=== PATIENT | female | born 1990 | race African-American/Black ===

== ENCOUNTER 2016-04-04 10:53 | Emergency (ER) | payer MEDICAID ==
[~2016-04-04] VITALS: Ht 162.6 cm; Wt 70.0 kg
[~2016-04-04 10:53] MED LIST: ZOFR4TAB3 SL
[2016-04-04 10:55] VITALS: BP 118/66; PULSE 66; RESP 16; TEMP 97.4; O2SAT 99
--- NOTE | 2016-04-04 11:10 | PD ---
HPI Chief Complaint: Flank/Kidney Pain Time Seen by Provider: 11:05 Travel History International Travel<30 days: No Contact w/Intl Traveler<30days: No Traveled to known affect area: No History of Present Illness HPI The patient is a 26-year-old Bhavani female who presents emergency department for 1 day history of dysuria, frequency, and urgency. The patient states her symptoms started yesterday with left sided, lower back pain. Patient now complains of suprapubic discomfort with genitourinary symptoms. The patient denies any vaginal discharge, vaginal bleeding, or history of STI' s. The patient denies any previous abdominal surgeries. 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 She is sexually active. She denies any nausea, vomiting, diarrhea, or change in appetite. Symptoms are mild to moderate with no known alleviating or exacerbating factors. PFSH Past Medical History Blood Disorders: No Depression: Yes Diminished Hearing: No Psychiatric: Yes Immunizations Current: No ?: Not : 5 Para: 2 Miscarriage: 2 : 1 Past Surgical History Section: No Other Surgery: No Social History Alcohol Use: Yes (occ) Tobacco Use: Yes (1/2 ppd black and mild) Substance Use: Yes (marijuana occ) Allergies-Medications (Allergen,Severity, Reaction): Coded Allergies: No Known Allergies (Verified , 04/04/16) Reported Meds & Prescriptions Reported Meds & Active Scripts Active No Active Prescriptions or Reported Medications Review of Systems Except as stated in HPI: all other systems reviewed are Neg General / Constitutional: No: Fever Gastrointestinal: No: Nausea, Vomiting Genitourinary: Positive: Urgency, Frequency, Dysuria, Pelvic Pain (suprapubic disc), No: Hematuria, Discharge, Vaginal Bleeding Musculoskeletal: Positive: Pain (left-sided low back pain) Skin: No Rash Physical Exam Narrative GENERAL: Awake, alert, pleasant 26-year-old female who appears her stated age and is in no acute respiratory distress. SKIN: Warm and dry. HEAD: Atraumatic. Normocephalic. EYES: No injection or drainage. NECK: Trachea midline. No JVD. GASTROINTESTINAL: Abdomen soft, mild suprapubic discomfort. No rebound tenderness, guarding, or rigidity. Back: Mild tenderness of the left CVA. MUSCULOSKELETAL: No obvious deformities. No clubbing. No cyanosis. No edema. NEUROLOGICAL: Awake and alert. No obvious cranial nerve deficits. Motor grossly within normal limits. Normal speech. PSYCHIATRIC: Appropriate mood and affect; insight and judgment normal. Data Data Last Documented VS Vital Signs Date Time Temp Pulse Resp B/P Pulse Ox O2 Delivery O2 Flow Rate FiO2 04/04/16 10:55 97.4 66 16 118/66 99 Room Air Orders Urinalysis - C+S If Indicated (04/04/16 11:07) Ed Urine Pregnancytest Poc (04/04/16 11:07) Urine Culture (04/04/16 11:10) Labs Laboratory Tests Test 04/04/16 11:10 Urine Color YELLOW Urine Turbidity HAZY Urine pH 6.5 Urine Specific [place] 1.019 Urine Protein 30 mg/dL Urine Glucose (UA) NEG mg/dL Urine Ketones NEG mg/dL Urine Occult Blood MOD Urine Nitrite NEG Urine Bilirubin NEG Urine Urobilinogen LESS THAN 2.0 MG/DL Urine Leukocyte Esterase LARGE Urine RBC 49 /hpf Urine WBC /hpf Urine WBC Clumps MOD Urine Squamous Epithelial 1 /hpf Cells Urine Renal Epithelial Cells <1 /hpf Urine Bacteria MOD /hpf Urine Mucus FEW /lpf Microscopic Urinalysis Comment CULTURE INDICATED MDM Medical Decision Making Medical Screen Exam Complete: Yes Emergency Medical Condition: Yes Medical Record Reviewed: Yes Interpretation(s) Laboratory Tests Test 04/04/16 11:10 Urine Color YELLOW Urine Turbidity HAZY Urine pH 6.5 Urine Specific [place] 1.019 Urine Protein 30 mg/dL Urine Glucose (UA) NEG mg/dL Urine Ketones NEG mg/dL Urine Occult Blood MOD Urine Nitrite NEG Urine Bilirubin NEG Urine Urobilinogen LESS THAN 2.0 MG/DL Urine Leukocyte Esterase LARGE Urine RBC 49 /hpf Urine WBC /hpf Urine WBC Clumps MOD Urine Squamous Epithelial 1 /hpf Cells Urine Renal Epithelial Cells <1 /hpf Urine Bacteria MOD /hpf Urine Mucus FEW /lpf Microscopic Urinalysis Comment CULTURE INDICATED Differential Diagnosis Differential diagnosis includes pyelonephritis, UTI, cystitis, , ectopic , cervicitis, PID, vaginitis. Narrative Course UA was sent to lab and bedside UA test was obtained. The patient's UA reveals innumerable wbc's and 49 RBCs with moderate bacteria. UA test was negative. Patient has pyelonephritis, will be treated with antibiotics. The patient was administered Bactrim in the emergency department and will be discharged home on Bactrim twice a day for 7 days as well as Pyridium. The patient is advised to return if symptoms worsen or progress. Diagnosis Primary Impression: Pyelonephritis Patient Instructions: General Instructions Additional Instructions: Medications as directed. Work excuse for one day. Follow-up with her primary physician. Return if symptoms worsen or progress. Med/Other Pt SpecificInfo: Prescription(s) given Scripts Phenazopyridine (Pyridium)200 Mg [id number] Mg PO Q8H PRN (DYSURIA) 2 Days Ref 0 Prov:Emmett Mckee MD 04/04/16 Sulfamethoxazole-Trimethoprim (Bactrim DS)800-160 Mg Tab1 Tab PO BID #14 TAB Ref 0 Prov:Emmett Mckee MD 04/04/16 Disposition: 01 DISCHARGE HOME Condition: Stable Emmett Mckee MD Apr 04, 2016 11:10
[2016-04-04 11:40] LABS: BACTERIA, URINE MOD /hpf; BLOOD, URINE MOD (NEG); COMMENT (UR) CULTURE INDICATED; CULTURE IF INDICATED CULTURE INDICATED; GLUCOSE,URINE NEG (NEG); KETONE, URINE NEG (NEG); MUCUS URINE FEW /lpf (OCC); NITRITE,URINE NEG (NEG); PH, URINE 6.5 (5.0-8.5); RENAL EPITHELIAL CELLS <1 /hpf; SQUAMOUS EPITHELIAL CELL URINE 1 /hpf (0-5); URINE COLOR YELLOW (YELLW/STRAW)
[2016-04-04] MEDS ORDERED: BACT800T5 PO (11:48)
[2016-04-04] MEDS ORDERED: PYRI200T4 PO (11:48)
[2016-04-04] MEDS ORDERED: SULFAMETHOXAZOLE-TRIMETHOPRIM DS 800-160 MG TAB PO ONE (12:00)
== END 2016-04-04 12:05 | disposition home or self-care (01) ==
LOC: NETRI 10:53
DX: N12 Tubulo-interstitial nephritis, not specified as acute or chronic (principal); F17.210 Nicotine dependence, cigarettes, uncomplicated; F12.90 Cannabis use, unspecified, uncomplicated; B96.20 Unspecified Escherichia coli [E. coli] as the cause of diseases classified elsewhere
CPT/HCPCS: 81001; 84703; 87077; 87086; 87186; 99283

== ENCOUNTER 2016-04-23 11:12 | Emergency (ER) | payer MEDICAID ==
[~2016-04-23 11:12] MED LIST changes: +BACT800T5 PO; +PYRI200T4 PO; -ZOFR4TAB3 SL
[2016-04-23 11:14] VITALS: BP 103/59; PULSE 96; RESP 14; TEMP 98.5; O2SAT 100
[2016-04-23] MEDS ORDERED: IBUP800T23 PO (12:16)
[2016-04-23] MEDS ORDERED: AZIT250T3 PO (12:16)
--- NOTE | 2016-04-23 12:16 | PD ---
HPI Chief Complaint: Cold / Flu Symptoms Time Seen by Provider: 11:50 Travel History International Travel<30 days: No Contact w/Intl Traveler<30days: No Traveled to known affect area: No History of Present Illness HPI Patient is a 26-year-old female who presented to the emergency department for evaluation of cough, chest congestion, nasal congestion, sore throat him a body aches. Patient states her symptoms have been ongoing for approximately 5 days. She reports taking Aleve last night with no relief of her symptoms. She denies any nausea, vomiting, abdominal pain, chest pain or shortness of breath. Patient does endorse tobacco use. PFSH Past Medical History Blood Disorders: No Depression: Yes Diminished Hearing: No Psychiatric: Yes Immunizations Current: No ?: Not : 5 Para: 2 Miscarriage: 2 : 1 Past Surgical History Section: No Gynecologic Surgery: Yes Other Surgery: No Social History Alcohol Use: Yes (occ) Tobacco Use: Yes (1/2 ppd black and mild) Substance Use: Yes (marijuana occ) Allergies-Medications (Allergen,Severity, Reaction): Coded Allergies: No Known Allergies (Verified , 04/23/16) Reported Meds & Prescriptions Reported Meds & Active Scripts Active Pyridium (Phenazopyridine HCl) 200 Mg Tab 200 Mg PO Q8H PRN 2 Days Bactrim DS (Sulfamethoxazole-Trimethoprim) 800-160 Mg Tab 1 Tab PO BID Review of Systems Except as stated in HPI: all other systems reviewed are Neg General / Constitutional: Positive: Chills, No: Fever HENT: Positive: Sore Throat, Rhinitis, Congestion Cardiovascular: No: Chest Pain or Discomfort Respiratory: Positive: Cough, No: Shortness of Breath Gastrointestinal: No: Nausea, Vomiting, Diarrhea Musculoskeletal: Positive: Myalgias Physical Exam Narrative GENERAL: Well-nourished, well-developed patient. SKIN: Warm and dry. HEAD: Normocephalic. EYES: No scleral icterus. No injection or drainage. ENT: Mucosa pink and moist. No erythema or exudates. No uvular edema. No uvular , palatal, or tonsillar deviation. Airway patent. Nasal turbinates appear normal without nasal blood, purulent drainage or septal hematoma. Cobblestone appearance to posterior pharynx. NECK: Supple, trachea midline. No JVD or lymphadenopathy. CARDIOVASCULAR: Regular rate and rhythm without murmurs, gallops, or rubs. RESPIRATORY: Breath sounds equal bilaterally. No accessory muscle use. GASTROINTESTINAL: Abdomen soft, non-tender, nondistended. MUSCULOSKELETAL: No cyanosis, or edema. BACK: Nontender without obvious deformity. No CVA tenderness. Data Data Last Documented VS Vital Signs Date Time Temp Pulse Resp B/P Pulse Ox O2 Delivery O2 Flow Rate FiO2 04/23/16 11:14 98.5 96 14 103/59 100 Room Air MDM Medical Decision Making Medical Screen Exam Complete: Yes Emergency Medical Condition: Yes Interpretation(s) Vital Signs Date Time Temp Pulse Resp B/P Pulse Ox O2 Delivery O2 Flow Rate FiO2 04/23/16 11:14 98.5 96 14 103/59 100 Room Air Differential Diagnosis Viral URI versus bronchitis versus pneumonia versus pharyngitis versus other Narrative Course Patient is a 26-year-old female who presented emergency for evaluation of 5 days of cough, chest congestion, nasal congestion, sore throat and body aches. Patient has not taken any lrud-ltv-anffvlh medications to relieve her symptoms. Patient's physical examination appears most consistent with a viral syndrome however she reports feeling worse. Patient was encouraged to take ibuprofen as needed and as directed for body aches and fevers, she was encouraged to obtain cyxd-xen-ucvllkq Mucinex DM or Sudafed. She will be provided with a prescription for an antibiotic due to her history of tobacco use as well as the duration of her symptoms. Patient was encouraged follow-up with primary care provider return to emergency department for any new or worsening symptoms. Patient verbalized understanding of these instructions. Patient is stable for discharge. Diagnosis Primary Impression: Acute bronchitis Qualified Code: J20.9 - Acute bronchitis, unspecified organism Referrals: Primary Care Physician Patient Instructions: Acute Bronchitis (ED), General Instructions Departure Forms: Tests/Procedures, Work Release Enter return to work date: Apr 25, 2016 Additional Instructions: Follow-up with your doctor Take medications as directed Obtain jipf-emg-ttkovdy Sudafed or Mucinex DM and use as directed Take ibuprofen as needed and as directed for fevers or body aches Return to emergency department for any new or worsening symptoms Med/Other Pt SpecificInfo: Prescription(s) given Scripts Ibuprofen 800 Mg [id number] Mg PO Q6HR PRN (PAIN) 10 Days Ref 0 Prov:Susie Ross 04/23/16 Azithromycin 250 Mg [id number] Mg PO DIRECTED #6 TAB Ref 0 Take 2 tabs (500 mg) on day 1 then 1 tab daily x 4 days. Prov:Susie Ross 04/23/16 Disposition: 01 DISCHARGE HOME Condition: Stable Susie Ross Apr 23, 2016 12:16
== END 2016-04-23 12:29 | disposition home or self-care (01) ==
LOC: NEPB 11:12
DX: J20.9 Acute bronchitis, unspecified (principal); F17.200 Nicotine dependence, unspecified, uncomplicated
CPT/HCPCS: 99283

== ENCOUNTER 2016-05-14 00:31 | Emergency (ER) | payer MEDICAID ==
[~2016-05-14] VITALS: Ht 162.6 cm; Wt 71.0 kg
[~2016-05-14 00:31] MED LIST changes: +AZIT250T3 PO; +IBUP800T23 PO
[2016-05-14 00:33] VITALS: BP 116/65; PULSE 108; RESP 16; TEMP 98.3; O2SAT 100
[2016-05-14 03:24] VITALS: RESP 16
[2016-05-14] MEDS ORDERED: SODIUM CHLOR 0.9% 1000 ML INJ 1,000 ML IV ONE (03:30)
[2016-05-14] MEDS ORDERED: ONDANSETRON HCL 4 MG/2 ML VIAL IV ONE (03:30)
[2016-05-14 03:45] LABS: AUTOMATED NEUTROPHIL # 5.5 TH/MM3 (1.8-7.7); BASOPHIL % 0.1 % (0.0-2.0); BLOOD, URINE NEG (NEG); COMMENT (UR) CULT NOT INDICATED; CULTURE IF INDICATED CULT NOT INDICATED; EOSINOPHIL % 0.2 % (0.0-4.0); GLUCOSE,URINE NEG (NEG); HEMATOCRIT 35.2 % (35.0-46.0); HEMO FLAGS DIFF FINAL; KETONE, URINE NEG (NEG); LYMPH % 12.9 % (9.0-44.0); LYMPHOCYTE # 0.9 TH/MM3 (1.0-4.8); MEAN CELL VOLUME 78.6 FL (80.0-100.0); MEAN CORPUSCULAR HEMOGLOBIN 26.1 PG (27.0-34.0); MEAN CORPUSCULAR HGB CONC 33.2 % (32.0-36.0); MONO % 3.7 % (0.0-8.0); MUCUS URINE FEW /lpf (OCC); NEUT % 83.1 % (16.0-70.0); NITRITE,URINE NEG (NEG); PLATELET COUNT 301 TH/MM3 (150-450); RED BLOOD COUNT 4.48 MIL/MM3 (4.00-5.30); RED CELL DISTRIBUTION WIDTH 14.9 % (11.6-17.2); SQUAMOUS EPITHELIAL CELL URINE 6 /hpf (0-5); URINE COLOR YELLOW (YELLW/STRAW); WHITE BLOOD COUNT 6.6 TH/MM3 (4.0-11.0)
[2016-05-14 04:05] LABS: ALT (GPT) 19 U/L (10-53); ANION GAP 7 MEQ/L (5-15); AST (GOT) 19 U/L (15-37); BICARBONATE 25.4 MEQ/L (21.0-32.0); BLOOD UREA NITROGEN 12 MG/DL (7-18); CHLORIDE 106 MEQ/L (98-107); GLOMERULAR FILTRATION RATE 102 ML/MIN (>89); SODIUM (NA) 138 MEQ/L (136-145)
[2016-05-14 04:10] LABS: ALKALINE PHOSPHATASE 66 U/L (45-117); TOTAL BILIRUBIN ADULT 0.4 MG/DL (0.2-1.0)
--- NOTE | 2016-06-05 07:53 | PD ---
HPI Chief Complaint: GI Complaint Time Seen by Provider: 02:16 Travel History International Travel<30 days: No Contact w/Intl Traveler<30days: No Traveled to known affect area: No History of Present Illness HPI The patient is a 26 year old female who presents to the [facility] emergency department with a history of vomiting that she reports began yesterday. The patient reports that she has had 3 episodes of vomiting since onset. She denies having any diarrhea. She reports that she has not been able to keep food down. She has been tolerating sips of liquids. The patient denies any recent fevers, cough, congestion, neck pain, chest pain, shortness of breath , abdominal pain, diarrhea, urinary symptoms, or neurologic symptoms. LMP: April 17, 2016. [facility] Past Medical History Narrative Medical The patient's past medical history is significant for depression. Medical History: Denies Significant Hx Blood Disorders: No Depression: Yes Diminished Hearing: No Psychiatric: Yes Immunizations Current: No Tetanus Vaccination: < 5 Years Influenza Vaccination: No ?: Not LMP: 04/17/16 Menopausal: No : 5 Para: 2 Miscarriage: 2 : 1 Past Surgical History Narrative Surgical The patient's past surgical history is significant for a gynecologic surgery. Section: No Gynecologic Surgery: Yes Other Surgery: No Social History Alcohol Use: Yes (occ) Tobacco Use: Yes (1/2 ppd black and mild) Substance Use: Yes (marijuana occ) Allergies-Medications (Allergen,Severity, Reaction): Coded Allergies: No Known Allergies (Verified , 05/14/16) Reported Meds & Prescriptions Reported Meds & Active Scripts Active No Active Prescriptions or Reported Medications Review of Systems Except as stated in HPI: all other systems reviewed are Neg General / Constitutional: No: Fever Eyes: No: Visual changes HENT: No: Headaches Cardiovascular: No: Chest Pain or Discomfort Respiratory: No: Shortness of Breath Gastrointestinal: Positive: Nausea, Vomiting, No: Diarrhea, Abdominal Pain, Changes in Bowel Habits, Indigestion, Loss of Appetite Genitourinary: No: Dysuria Musculoskeletal: No: Pain Skin: No Rash Neurologic: No: Weakness Psychiatric: No: Depression Endocrine: No: Polydipsia Hematologic/Lymphatic: No: Easy Bruising Physical Exam Narrative The patient left AGAINST MEDICAL ADVICE prior to her physical exam being completed. Data Data Orders Complete Blood Count With Diff (05/14/16 03:22) Comprehensive Metabolic Panel (05/14/16 03:22) Lipase (05/14/16 03:22) Urinalysis - C+S If Indicated (05/14/16 03:22) Iv Access Insert/Monitor (05/14/16 03:22) Ecg Monitoring (05/14/16 03:22) Oximetry (05/14/16 03:22) Sodium Chlor 0.9% 1000 Ml Inj (Ns 1000 M (05/14/16 03:30) Ondansetron Inj (Zofran Inj) (05/14/16 03:30) MDM Medical Decision Making Medical Screen Exam Complete: Yes Emergency Medical Condition: Yes Medical Record Reviewed: Yes Differential Diagnosis Viral syndrome, versus gastroenteritis, versus electrolyte abnormality, versus dehydration, versus pancreatitis, versus Narrative Course During the course of the patients emergency department visit, the patients history, examination, and differential diagnosis were reviewed with the patient. The patient had IV access obtained and blood work sent for analysis. The patient was placed on a radiographer cardiac catheterization with oximetry and blood pressure monitoring. The patient elected to leave AGAINST MEDICAL ADVICE prior to the completion of her workup for administration of any IV fluids or nausea medicine. AMA: The risks of leaving against medical advice without further evaluation treatment were discussed with the patient. These risks include undiagnosed sepsis, versus appendicitis versus pancreatitis, versus electrolyte abnormality which could lead to cardiac arrhythmias or . The patient indicated understanding of these risks and appeared to have the capacity to make this decision. Diagnosis Primary Impression: Left against medical advice Additional Impression: Vomiting Patient Instructions: General Instructions Departure Forms: Tests/Procedures Scripts No Active Prescriptions or Reported Meds Disposition: 07 AGAINST MEDICAL ADVICE Condition: Stable Yesi Ray MD Jun 05, 2016 07:52
== END 2016-05-14 04:08 | disposition left against medical advice (07) ==
LOC: NEPC 00:31
DX: R11.10 Vomiting, unspecified (principal); F17.210 Nicotine dependence, cigarettes, uncomplicated
CPT/HCPCS: 80053; 81001; 83690; 85025; 96374; 99283; J2405; J7030

== ENCOUNTER 2016-07-14 02:22 | Emergency (ER) | payer MEDICAID, OTHER ==
[~2016-07-14] VITALS: Ht 162.6 cm; Wt 68.0 kg
[2016-07-14 02:23] VITALS: BP 139/92; PULSE 58; RESP 16; TEMP 97.5; O2SAT 98
[2016-07-14] MEDS ORDERED: PENICILLIN V POTASSIUM 500 MG TAB PO ONE (03:00)
[2016-07-14] MEDS ORDERED: ACETAMINOPHEN/HYDROcodone 325 MG/5 MG TAB PO ONE (03:00)
[2016-07-14] MEDS ORDERED: PENI500T PO (03:06)
[2016-07-14] MEDS ORDERED: HYDR-3533 PO (03:06)
--- NOTE | 2016-07-14 03:07 | PD ---
HPI Chief Complaint: Oral / Dental Pain or Problem Time Seen by Provider: 02:58 Travel History International Travel<30 days: No Contact w/Intl Traveler<30days: No Traveled to known affect area: No History of Present Illness HPI 26 yo F c/o L dentalgia with radiation to L ear and L jaw. Ibuprofen, Tylenol and BC powder was helpful. No fever. Onset gradual. Timing constant. Pt has follow up with dentist planned. PFSH Past Medical History Blood Disorders: No Depression: Yes Diminished Hearing: No Psychiatric: Yes Immunizations Current: No ?: Unknown LMP: 06-16-16 Menopausal: No : 5 Para: 2 Miscarriage: 2 : 1 Past Surgical History Surgical History: No Previous Surgery Section: No Gynecologic Surgery: Yes Other Surgery: No Social History Alcohol Use: Yes (occ) Tobacco Use: Yes (1/2 ppd black and mild) Substance Use: Yes (marijuana occ) Allergies-Medications (Allergen,Severity, Reaction): Coded Allergies: No Known Allergies (Verified , 05/14/16) Reported Meds & Prescriptions Reported Meds & Active Scripts Active No Active Prescriptions or Reported Medications Review of Systems General / Constitutional: No: Fever HENT: Positive: Dental Difficulties Physical Exam Narrative GENERAL: 26 yo F, WNWD ENT: L upper dentition good with one fractured wisdom tooth. L lower dentition poor with fractures and carries. TMs pink with clear visualization landmarks bilaterally. SKIN: Warm and dry. HEAD: Normocephalic. EYES: No scleral icterus. No injection or drainage. NECK: Supple, trachea midline. No JVD or lymphadenopathy. BACK: Nontender without obvious deformity. No CVA tenderness. Data Data Last Documented VS Vital Signs Date Time Temp Pulse Resp B/P Pulse Ox O2 Delivery O2 Flow Rate FiO2 07/14/16 02:23 97.5 58 16 139/92 98 Room Air VS reviewed Orders Penicillin V Potassium (Veetids) (07/14/16 03:00) Acetamin-Hydrocod 325-5 Mg ([place] 5-325 (07/14/16 03:00) MDM Medical Decision Making Medical Screen Exam Complete: Yes Emergency Medical Condition: Yes Differential Diagnosis dental fx, dental carry, abscess Narrative Course Pt has dental abscess/carry involving L upper molar. PCN VK/[facility] dentist follow up. Diagnosis Primary Impression: Dentalgia Referrals: Dentist 1 week Additional Instructions: You have a choice when it comes to health care, and we are glad that you chose [facility]. Hopefully, we have met your expectations on today's visit. You are welcome to return to [facility] at any time, as we are committed to meeting the health care needs of our community. Med/Other Pt SpecificInfo: Prescription(s) given Scripts Hydrocodone-Acetaminophen (Lortab)5-325 Mg Tab1-2 Tab PO Q6H PRN (PAIN SCALE 6 TO 10) #10 TAB Ref 0 Prov:Emmanuel Triana MD 07/14/16 Penicillin V Potassium 500 Mg [id number] Mg PO Q6H 7 Days Ref 0 Prov:Emmanuel Triana MD 07/14/16 Disposition: 01 DISCHARGE HOME Condition: Stable Emmanuel Triana MD Jul 14, 2016 03:07
== END 2016-07-14 03:10 | disposition home or self-care (01) ==
LOC: NEPC 02:22
DX: K08.89 Other specified disorders of teeth and supporting structures (principal); F17.200 Nicotine dependence, unspecified, uncomplicated
CPT/HCPCS: 99282

== ENCOUNTER 2016-08-19 20:40 | Emergency (ER) | payer MEDICAID ==
[~2016-08-19] VITALS: Ht 162.6 cm; Wt 68.0 kg
[~2016-08-19 20:40] MED LIST changes: -AZIT250T3 PO; -BACT800T5 PO; +HYDR-3533 PO; -IBUP800T23 PO; +PENI500T PO; -PYRI200T4 PO
[2016-08-19 20:42] VITALS: BP 143/88; PULSE 52; RESP 16; TEMP 97.8; O2SAT 100
[2016-08-19] MEDS ORDERED: DICL50TA3 PO (20:59)
[2016-08-19] MEDS ORDERED: AMOX500C PO (20:59)
[2016-08-19] MEDS ORDERED: AMOXICILLIN (TRIHYDRATE) 500 MG CAP PO ONE (21:00)
[2016-08-19] MEDS ORDERED: BUPIVACAINE/EPINEPHRINE 0.25% PF 30 ML VIAL NERV BLOCK ONE (21:00)
--- NOTE | 2016-08-19 21:03 | PD ---
HPI Chief Complaint: Oral / Dental Pain or Problem Time Seen by Provider: 20:59 Travel History International Travel<30 days: No Contact w/Intl Traveler<30days: No Traveled to known affect area: No History of Present Illness HPI 26-year-old black female presents to emergency Department with complaints of dental pain. She states that she was seen here in the ER last month for the same problem. She was given penicillin and Lortab. She states that she took her medications and her pain resolved. She did not follow-up with a doctor or a dentist. She states that now in the last few days the pain is returned. She has pain in her left ear which she feels his relating to her dental problems. She has pain in her left lower mandible as well as her maxilla on the left. She has had no fever or chills. No cough or cold symptoms. She states the pain is worse when she moves her jaw or eats. No alleviating factors. She is taking fwng-rlp-ufpvsjl medications without relief. PFSH Past Medical History Blood Disorders: No Depression: Yes Diminished Hearing: No Psychiatric: Yes Immunizations Current: No Tetanus Vaccination: < 5 Years ?: Not LMP: 07/26/16 Menopausal: No : 5 Para: 2 Miscarriage: 2 : 1 Past Surgical History Section: No Gynecologic Surgery: Yes Other Surgery: No Social History Alcohol Use: Yes (occ) Tobacco Use: Yes (1/2 ppd black and mild) Substance Use: Yes (marijuana occ) Allergies-Medications (Allergen,Severity, Reaction): Coded Allergies: No Known Allergies (Verified , 08/19/16) Reported Meds & Prescriptions Reported Meds & Active Scripts Active Diclofenac Sodium DR (Diclofenac Sodium) 50 Mg Tabdr 50 Mg PO TID Amoxicillin 500 Mg Cap 500 Mg PO TID Lortab (Hydrocodone-Acetaminophen) 5-325 Mg Tab 1-2 Tab PO Q6H PRN Penicillin V Potassium 500 Mg Tab 500 Mg PO Q6H 7 Days Review of Systems Except as stated in HPI: all other systems reviewed are Neg Eyes: No: Diploplia, Blurred Vision HENT: Positive: Dental Difficulties, Earache, No: Headaches, Sore Throat, Congestion, Gingival Bleeding, Ear Discharge Cardiovascular: No: Chest Pain or Discomfort, Palpitations Respiratory: No: Cough, Shortness of Breath Physical Exam Narrative GENERAL: Well-developed, well-nourished in no acute distress. Nontoxic appearing. HEAD: Normocephalic, atraumatic. EYES: Pupils equal round and reactive. Extraocular motions intact. No scleral icterus. No injection or drainage. ENT: TMs clear without erythema. The external auditory canals clear. Nose: clear . Posterior pharynx is pink and moist. No tonsillar edema or exudate. Uvula midline. Airway patent. The patient has poor dentition. She has a dental carry in tooth #16 and 19. Minimal gingival erythema. No significant edema. NECK: Trachea midline.Supple, nontender, moves head freely. No central bony tenderness or spasm. CARDIOVASCULAR: Regular rate and rhythm without murmurs, gallops, or rubs. RESPIRATORY: Clear to auscultation. Breath sounds equal bilaterally. No wheezes , rales, or rhonchi. GASTROINTESTINAL: Abdomen soft, non-tender, nondistended. No hepato-splenomegaly , or palpable masses. No guarding. EXTREMITIES: No clubbing, cyanosis, or edema. No joint tenderness, effusion, or edema noted. BACK: Nontender without deformity or crepitance. No flank tenderness. Data Data Last Documented VS Vital Signs Date Time Temp Pulse Resp B/P Pulse Ox O2 Delivery O2 Flow Rate FiO2 08/19/16 20:42 97.8 52 16 143/88 100 Room Air Orders Bupivacaine-Epi Pf 0.25% Inj (Marcaine-E (08/19/16 21:00) Amoxicillin (Trimox) (08/19/16 21:00) MDM Medical Decision Making Medical Screen Exam Complete: Yes Emergency Medical Condition: Yes Medical Record Reviewed: Yes Differential Diagnosis MDM: Moderate Differential diagnoses: Dental abscess, dental caries, osteitis, cellulitis Narrative Course Patient is given amoxicillin 500 mg by mouth. She has requested a dental block. This is dentalgia, dental caries Procedures Procedure Narrative Patient is given a dental block to tooth #16 with 0.25% Marcaine with epinephrine. Patient's given a total of 3 mL's. Diagnosis Primary Impression: Dentalgia Additional Impression: Dental caries Patient Instructions: General Instructions Additional Instructions: Rest. Saltwater gargles. Valliant oil on cotton balls. Diclofenac and amoxicillin. follow-up with a dentist as soon as possible. And return to the ER if any problems. Med/Other Pt SpecificInfo: Prescription(s) given Scripts Diclofenac Sodium DR 50 Mg Tabdr50 Mg PO TID #21 TAB Prov:Trevor Rankin MD 08/19/16 Amoxicillin 500 Mg [id number] Mg PO TID #30 CAP Prov:Trevor Rankin MD 08/19/16 Disposition: 01 DISCHARGE HOME Condition: Stable Julien Martin August 19, 2016 21:03
== END 2016-08-19 21:50 | disposition home or self-care (01) ==
LOC: NEPK 20:40
DX: K02.9 Dental caries, unspecified (principal); F17.210 Nicotine dependence, cigarettes, uncomplicated
CPT/HCPCS: 64400

== ENCOUNTER 2016-09-24 01:04 | Emergency (ER) | payer MEDICAID ==
[~2016-09-24] VITALS: Ht 167.6 cm; Wt 68.0 kg
[~2016-09-24 01:04] MED LIST changes: +AMOX500C PO; +DICL50TA3 PO
[2016-09-24 01:06] VITALS: BP 119/65; PULSE 104; RESP 16; TEMP 98.6; O2SAT 99
[2016-09-24] MEDS ORDERED: DIPHTH/TETANUS/ACEL PERTUSSIS (BOOSTER) 0.5 ML VIAL/PFS IM ONE (01:45)
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
== END 2016-09-24 02:00 | disposition left against medical advice (07) ==
LOC: NEPC 01:04
DX: S09.90XA Unspecified injury of head, initial encounter (principal); Y04.2XXA Assault by strike against or bumped into by another person, initial encounter; Y93.89 Activity, other specified; Y92.512 Supermarket, store or market as the place of occurrence of the external cause; Y99.9 Unspecified external cause status; Z53.29 Procedure and treatment not carried out because of patient's decision for other reasons
CPT/HCPCS: 99283

== ENCOUNTER 2016-12-22 14:46 | Emergency (ER) | payer MEDICAID ==
[~2016-12-22] VITALS: Ht 162.6 cm; Wt 70.0 kg
[2016-12-22 14:48] VITALS: BP 133/88; PULSE 81; RESP 15; TEMP 98.4; O2SAT 99
[2016-12-22 17:25] LABS: BLOOD, URINE NEG (NEG); COMMENT (UR) CULT NOT INDICATED; CULTURE IF INDICATED CULT NOT INDICATED; GLUCOSE,URINE NEG (NEG); KETONE, URINE NEG (NEG); MUCUS URINE FEW /lpf (OCC); NITRITE,URINE NEG (NEG); PH, URINE 7.5 (5.0-8.5); SQUAMOUS EPITHELIAL CELL URINE 1 /hpf (0-5); URINE COLOR YELLOW (YELLW/STRAW)
[2016-12-22] MEDS ORDERED: ONDANSETRON ODT 4 MG TAB PO ONE (17:30)
--- NOTE | 2016-12-22 17:30 | PD ---
HPI Chief Complaint: GI Complaint Time Seen by Provider: 17:14 Travel History International Travel<30 days: No Contact w/Intl Traveler<30days: No Traveled to known affect area: No History of Present Illness HPI Patient 26-year-old female presents emergency department for evaluation of nausea vomiting and diarrhea after eating out with her friends last night. Patient denying any abdominal pain chest pain shortness of breath dysuria vaginal discharge or vaginal bleeding. Denies possibility of . Patient states her emesis is nonbloody and nonbilious, no blood no melena in the stool. Symptoms are mild to moderate. PFSH Past Medical History Blood Disorders: No Depression: Yes Cancer: No Cardiovascular Problems: No Diabetes: No Diminished Hearing: No Psychiatric: Yes Immunizations Current: No Seizures: No Thyroid Disease: No Ulcer: No ?: Unknown LMP: 2016 Menopausal: Yes : 5 Para: 2 Miscarriage: 2 : 1 Dilation and Curettage (D&C): Yes Past Surgical History Section: No Gynecologic Surgery: Yes Other Surgery: No Social History Alcohol Use: No Tobacco Use: Yes (one half pack per day) Substance Use: No Allergies-Medications (Allergen,Severity, Reaction): Coded Allergies: No Known Allergies (Verified , 12/22/16) Reported Meds & Prescriptions Reported Meds & Active Scripts Active Zofran (Ondansetron HCl) 4 Mg Tab 4 Mg PO Q6HR PRN Review of Systems Except as stated in HPI: all other systems reviewed are Neg Physical Exam Narrative GENERAL: Well-developed well-nourished, thin in no obvious distress. SKIN: Focused skin assessment warm/dry. Normal skin turgor HEAD: Atraumatic. Normocephalic. EYES: Pupils equal and round. No scleral icterus. No injection or drainage. ENT: No nasal bleeding or discharge. Mucous membranes pink and moist. Mucous membranes moist. NECK: Trachea midline. No JVD. CARDIOVASCULAR: Regular rate and rhythm. No murmur appreciated. RESPIRATORY: No accessory muscle use. Clear to auscultation. Breath sounds equal bilaterally. GASTROINTESTINAL: Abdomen soft, non-tender, nondistended. Hepatic and splenic margins not palpable. MUSCULOSKELETAL: No obvious deformities. No clubbing. No cyanosis. No edema. NEUROLOGICAL: Awake and alert. No obvious cranial nerve deficits. Motor grossly within normal limits. Normal speech. PSYCHIATRIC: Appropriate mood and affect; insight and judgment normal. Data Data Last Documented VS Vital Signs Date Time Temp Pulse Resp B/P (MAP) Pulse Ox O2 Delivery O2 Flow Rate FiO2 12/22/16 16:55 18 12/22/16 14:48 98.4 81 133/88 (103) 99 Orders Orders Urinalysis - C+S If Indicated (12/22/16 17:00) Ed Urine Pregnancytest Poc (12/22/16 17:00) Ondansetron Odt (Zofran Odt) (12/22/16 17:30) Labs Laboratory Tests Test 12/22/16 17:05 Urine Color YELLOW Urine Turbidity HAZY Urine pH 7.5 Urine Specific [place] 1.020 Urine Protein NEG mg/dL Urine Glucose (UA) NEG mg/dL Urine Ketones NEG mg/dL Urine Occult Blood NEG Urine Nitrite NEG Urine Bilirubin NEG Urine Urobilinogen LESS THAN 2.0 MG/DL Urine Leukocyte Esterase NEG Urine Squamous Epithelial Cells 1 /hpf Urine Amorphous Sediment FEW Urine Mucus FEW /lpf Microscopic Urinalysis Comment CULT NOT INDICATED MDM Medical Decision Making Medical Screen Exam Complete: Yes Emergency Medical Condition: Yes Differential Diagnosis Gastritis, gastroenteritis, dehydration unlikely, . Narrative Course Patient with benign abdomen presents emergency department for evaluation of nausea and vomiting, given 8 of Zofran is been able tolerate by mouth solids and liquids in the emergency department, is no indication for aggressive management this time, test negative. Discussed symptomatic management home and returned ED criteria. She is stable for discharge. Diagnosis Primary Impression: Acute gastroenteritis Scripts Ondansetron (Zofran) 4 Mg Tab 4 MG PO Q6HR Y for NAUSEA OR VOMITING, #20 TAB 0 Refills Prov: Mt Felix MD 12/22/16 Disposition: 01 DISCHARGE HOME Condition: Stable Mt Felix MD Dec 22, 2016 17:30
[2016-12-22] MEDS ORDERED: ZOFR4TAB PO (18:51)
== END 2016-12-22 19:05 | disposition home or self-care (01) ==
LOC: NEPD 14:46
DX: K52.9 Noninfective gastroenteritis and colitis, unspecified (principal); F17.200 Nicotine dependence, unspecified, uncomplicated
CPT/HCPCS: 81001; 84703; 99283

== ENCOUNTER 2017-04-09 18:18 | Emergency (ER) | payer MEDICAID ==
[~2017-04-09] VITALS: Ht 162.6 cm; Wt 71.4 kg
[~2017-04-09 18:18] MED LIST changes: -AMOX500C PO; -DICL50TA3 PO; -HYDR-3533 PO; -PENI500T PO; +ZOFR4TAB PO
[2017-04-09 18:27] VITALS: BP 118/71; PULSE 83; RESP 14; TEMP 98.5; O2SAT 99
--- NOTE | 2017-04-09 19:37 | PD ---
HPI Chief Complaint: Cold / Flu Symptoms Time Seen by Provider: 18:49 Travel History International Travel<30 days: No Contact w/Intl Traveler<30days: No Traveled to known affect area: No History of Present Illness HPI 27-year-old female presents to emergency with complaint of headache, body aches , nasal congestion, cough, sore throat 2-3 days. Denies fevers. Denies vomiting. Denies ear pain. Has not taken any medication or tried any treatments to alleviate her symptoms. No sick contacts. Symptoms are mild in severity. No known relieving or aggravating factors. No known allergies. No primary care provider. Denies significant past medical history. Has no other medical complaints. No other modifying factors or associated signs and symptoms. PFSH Past Medical History Blood Disorders: No Depression: Yes Cancer: No Cardiovascular Problems: No Diabetes: No Diminished Hearing: No Psychiatric: Yes Immunizations Current: No Seizures: No Thyroid Disease: No Ulcer: No Tetanus Vaccination: < 5 Years ?: Not LMP: 03/10/2017 Menopausal: Yes : 5 Para: 2 Miscarriage: 2 : 1 Dilation and Curettage (D&C): Yes Past Surgical History Section: No Gynecologic Surgery: Yes Other Surgery: No Social History Alcohol Use: No Tobacco Use: Yes (one half pack per day) Substance Use: No Allergies-Medications (Allergen,Severity, Reaction): Coded Allergies: No Known Allergies (Verified Adverse Reaction, Unknown, 04/09/17) Reported Meds & Prescriptions Reported Meds & Active Scripts Active No Active Prescriptions or Reported Medications Review of Systems Except as stated in HPI: all other systems reviewed are Neg Physical Exam Narrative GENERAL: Well-nourished, well-developed black female patient, in no acute distress; afebrile, nontoxic-appearing SKIN: Warm and dry. No rash. HEAD: Atraumatic. Normocephalic. EYES: Pupils equal and round. No scleral icterus. No injection or drainage. ENT: Mucosa pink and moist. No erythema or exudates. No uvular edema. No uvular , palatal, or tonsillar deviation. Airway patent. EARS: Bilateral pinnae and external canals appear within normal limits. Bilateral tympanic membranes without erythema, dullness or perforation. NECK: Trachea midline. No lymphadenopathy. CARDIOVASCULAR: Regular rate and rhythm. No murmur appreciated. RESPIRATORY: No accessory muscle use. Clear to auscultation. Breath sounds equal bilaterally. No retractions or tachypnea. GASTROINTESTINAL: Abdomen soft, non-tender, nondistended. Hepatic and splenic margins not palpable. Bowel sounds are active 4 quadrants. MUSCULOSKELETAL: No obvious deformities. No clubbing. No cyanosis. No edema. NEUROLOGICAL: Awake and alert. Oriented 3. No obvious cranial nerve deficits. Motor grossly within normal limits. Normal speech. Moves all extremities. 5/5 strength to all extremities. PSYCHIATRIC: Appropriate mood and affect; insight and judgment normal. Data Data Last Documented VS Vital Signs Date Time Temp Pulse Resp B/P (MAP) Pulse Ox O2 Delivery O2 Flow Rate FiO2 04/09/17 18:27 98.5 83 14 118/71 (87) 99 Orders Orders Influenzae A/B Antigen (04/09/17 18:38) Group A Rapid Strep Screen (04/09/17 18:38) Strep Culture (Group A) (04/09/17 18:57) MDM Medical Decision Making Medical Screen Exam Complete: Yes Emergency Medical Condition: Yes Medical Record Reviewed: Yes Differential Diagnosis Influenza, viral illness, upper respiratory infection, bronchitis Narrative Course 27-year-old female with cold/flu symptoms for 2-3 days. Patient is afebrile and nontoxic-appearing. Denies fever, vomiting. Influenza and rapid strep ordered. 1954: Influenza and rapid strep negative. Discussed viral illness and symptomatic management. Ibuprofen, Nasonex nasal spray prescribed for home. Instructed patient to follow up with primary care provider. Patient verbalizes understanding and agreement with treatment plan. Patient is medically cleared and stable for discharge. Discussed reasons to return to the emergency department. Patient agrees with treatment plan. The patients vital signs are stable and the patient is stable for outpatient follow-up and treatment. Patient discharged home, stable and in no acute distress. Diagnosis Primary Impression: Viral illness Referrals: [facility] Primary Care Physician Patient Instructions: Cold Symptoms (ED), General Instructions, Safe Use of Cough and Cold Medicines (ED) Departure Forms: Tests/Procedures, Work Release Enter return to work date: Apr 11, 2017 Additional Instructions: Ibuprofen or Tylenol as directed and as needed to reduce fever; may alternate ibuprofen and Tylenol as needed every 3 hours to minimize fever [id number] cold/flu medications as directed and as needed for symptom management Get plenty of sleep/rest Drink plenty of fluids to prevent dehydration; such as Gatorade, Powerade, Pedialyte [place] diet to encourage nutrition such as crackers, fruit, applesauce, toast, soup etc. Use an air humidifier/turn off ceiling fans Follow-up with your primary care provider within 1 day Return immediately to the emergency department with worsening of symptoms Med/Other Pt SpecificInfo: Prescription(s) given Scripts Mometasone Nasal [place] (Nasonex Nasal [place]) 50 Mcg/Act Naspr 2 SPRAY EACH NARE DAILY Y for NASAL CONGESTION, #1 BOTTLE 0 Refills Prov: Constance Salmeron 04/09/17 Ibuprofen (Ibuprofen) 800 Mg Tab 800 MG PO Q6HR Y for PAIN, #30 TAB 0 Refills Prov: Constance Salmeron 04/09/17 Disposition: 01 DISCHARGE HOME Condition: Stable Constance Salmeron Apr 09, 2017 19:37
[2017-04-09] MEDS ORDERED: IBUP1TAB7 PO (19:57)
[2017-04-09] MEDS ORDERED: MOME17I EACH NARE (19:57)
== END 2017-04-09 20:05 | disposition home or self-care (01) ==
LOC: NEPK 18:18
DX: B34.9 Viral infection, unspecified (principal); F32.9 Major depressive disorder, single episode, unspecified; F17.200 Nicotine dependence, unspecified, uncomplicated
CPT/HCPCS: 87081; 87804; 87880; 99283